=== PATIENT | female | born 1940 ===

== ENCOUNTER 2020-07-20 09:55 | Outpatient (CLI) | payer OTHER | END 2020-07-20 10:05 | disposition home or self-care (01) | LOC: RAD 09:55 | PROVIDERS: ATTEND Orthopaedic Surgery Orthopaedic Surgery of the Spine | DX: M51.36 Other intervertebral disc degeneration, lumbar region (principal) ==

== ENCOUNTER 2021-10-29 09:08 | Emergency (ER) | payer OTHER ==
[~2021-10-29] VITALS: Ht 160 cm; Wt 63.0 kg
[2021-10-29] MEDS ORDERED: COZAAR25 MG PO (09:20)
[2021-10-29] MEDS ORDERED: VAZALORE81 MG PO (09:20)
== END 2021-10-29 11:57 | disposition home or self-care (01) ==
LOC: ER 09:08
DX: G44.209 Tension-type headache, unspecified, not intractable (principal); I10 Essential (primary) hypertension

== ENCOUNTER 2021-11-14 10:13 | Emergency (ER) | payer OTHER ==
[~2021-11-14] VITALS: Ht 157.5 cm; Wt 64.0 kg
[~2021-11-14 10:13] MED LIST: COZAAR25 MG PO; VAZALORE81 MG PO
[2021-11-14] MEDS ORDERED: LEVSIN/SL0.125 MG SL (16:17)
[2021-11-14] MEDS ORDERED: PEPCID AC20 MG PO (16:17)
[2021-11-14] MEDS ORDERED: BACTRIM DS TAB1 EACH PO (16:17)
== END 2021-11-14 15:45 | disposition home or self-care (01) ==
LOC: ER 10:13
DX: N39.0 Urinary tract infection, site not specified (principal); R10.9 Unspecified abdominal pain; K80.20 Calculus of gallbladder without cholecystitis without obstruction